=== PATIENT | male | born 1965 | race Caucasian/White ===

== ENCOUNTER 2021-07-10 12:36 | Outpatient (CLI) | payer BC ==
[~2021-07-10] VITALS: Ht 175.3 cm; Wt 109.0 kg
[2021-07-10] MEDS ORDERED: ONDANSETRON 4 MG/2 ML (SDV) Z0FRAN IV PRN (13:00)
[2021-07-10] MEDS ORDERED: EPINEPHrine INJECTION 1 MG/ML AMP IM PRN (13:00)
[2021-07-10] MEDS ORDERED: ACETAMINOPHEN 500 MG TAB (TYLENOL) PO PRN (13:00)
[2021-07-10] MEDS ORDERED: CASIRIVIMAB/IMDEVIMAB 1,200 MG in NS (IVPB) 250 ML IV ONE (13:00)
[2021-07-10] MEDS ORDERED: diphenhydrAMINE 50 MG/ML INJ (BENADRYL) IV PRN (13:00)
[2021-07-10 13:58] VITALS: BP 138/82
== END 2021-07-10 14:48 ==
LOC: INFUSION 12:36
PROVIDERS: ATTEND Registered Nurse
DX: U07.1 COVID-19 (principal)